=== PATIENT | male | born 1945 | race Caucasian/White ===

== ENCOUNTER → 2016-04-23 | Outpatient (CLI) | payer MEDICARE, OTHER ==
[~2016-04-23] MED LIST: ASPIRIN 32325 MG/TAB PO; CARDIZEM CD360 MG PO; COQ1060 MG PO; CRAN-PLUS1 CAP PO; GARLIC OIL PO; GLUCOPHAGE500 MG/TAB PO; KLOR-CON M2020 MEQ PO; PLAVIX 75MG TAB75 MG PO; PRILOSEC 20MG20 MG PO; PRINIVIL10 MG PO; PROSTATE SUPPORT; TRIAMTERENE/HCT1 TAB PO; ZYRTEC 10MG10 MG PO; [UNRECOGNIZED DRUG - OTHER]; [UNRECOGNIZED DRUG - OTHER]; [UNRECOGNIZED DRUG - OTHER]; [UNRECOGNIZED DRUG - OTHER]; [UNRECOGNIZED DRUG - OTHER] PO
== END ==
LOC: COL.RAD 04-19 13:30
DX: R13.19 Other dysphagia (principal)

== ENCOUNTER 2017-04-16 07:06 | Day surgery (SDC) | payer MEDICARE, OTHER ==
[~2017-04-16] VITALS: Ht 180.3 cm; Wt 99.4 kg
[2017-04-16] VITALS (8 sets, daily range): BP systolic 124–174; BP diastolic 83–102; PULSE 76–96; TEMP 98–98.3
[2017-04-16] MEDS ORDERED: CARDIZEM CD360 MG PO (07:38)
[2017-04-16] MEDS ORDERED: DYAZIDE 25 MG-31 CAP PO (07:39)
[2017-04-16] MEDS ORDERED: PRINIVIL10 MG PO (07:39)
[2017-04-16] MEDS ORDERED: GLUCOPHAGE500 MG/TAB PO (07:40)
[2017-04-16] MEDS ORDERED: KLOR-CON M2020 MEQ PO (07:40)
[2017-04-16] MEDS ORDERED: PLAVIX 75MG TAB75 MG PO (07:41)
[2017-04-16] MEDS ORDERED: PEPCID40 MG PO (07:42)
[2017-04-16] MEDS ORDERED: ASPIRIN 81M81 MG/TA2 PO (07:58)
== END 2017-04-16 10:45 | disposition home or self-care (01) ==
LOC: SDCO 07:06
DX: K64.0 First degree hemorrhoids (principal); E11.9 Type 2 diabetes mellitus without complications; I10 Essential (primary) hypertension; K21.9 Gastro-esophageal reflux disease without esophagitis; G47.33 Obstructive sleep apnea (adult) (pediatric); M19.90 Unspecified osteoarthritis, unspecified site; Z86.010 Personal history of colon polyps
CPT/HCPCS: OP; J2250; J2405; J3010; J7030

== ENCOUNTER → 2017-05-02 | Outpatient (CLI) | payer MEDICARE, OTHER ==
[~2017-05-02] MED LIST changes: +ASPIRIN 81M81 MG/TA2 PO; +DYAZIDE 25 MG-31 CAP PO; +PEPCID40 MG PO
== END ==
LOC: COL.VAS 14:43
DX: I65.21 Occlusion and stenosis of right carotid artery (principal); I65.22 Occlusion and stenosis of left carotid artery

== ENCOUNTER → 2018-05-08 | Outpatient (CLI) | payer MEDICARE, OTHER | LOC: COL.RAD 14:08 | DX: M75.121 Complete rotator cuff tear or rupture of right shoulder, not specified as traumatic (principal); M19.011 Primary osteoarthritis, right shoulder ==